=== PATIENT | male | born 1950 | race African-American/Black ===

== ENCOUNTER 2024-01-22 10:58 | Outpatient (CLI) | payer OTHER ==
[2024-01-22] MEDS ORDERED: Iopamidol 370 76% 100 ML VIAL ONE (11:02)
== END 2024-01-22 10:59 | disposition home or self-care (01) ==
LOC: BICCT 10:58
PROVIDERS: ATTEND Internal Medicine
DX: C7A.8 Other malignant neuroendocrine tumors (principal)
CPT/HCPCS: 71260; 74177; 82565; Q9967